=== PATIENT | male | born 1970 | race Caucasian/White ===

== ENCOUNTER → 2023-10-28 09:21 | Outpatient (BNVA) | payer OTHER, SELFPAY | PROVIDERS: PCP Internal Medicine; Visit Provider Physician Assistant Medical | DX: S39.012A Strain of muscle, fascia and tendon of lower back, initial encounter (principal); X50.3XXA Overexertion from repetitive movements, initial encounter | CPT/HCPCS: 99202 ==

== ENCOUNTER → 2023-10-30 11:02 | Outpatient (BNVA) | payer OTHER, SELFPAY | PROVIDERS: PCP Internal Medicine; Visit Provider Physician Assistant | DX: S39.012A Strain of muscle, fascia and tendon of lower back, initial encounter (principal); X50.3XXA Overexertion from repetitive movements, initial encounter | CPT/HCPCS: 99213 ==

== ENCOUNTER → 2023-11-06 14:39 | Outpatient (BNVA) | payer OTHER, SELFPAY | PROVIDERS: PCP Internal Medicine; Visit Provider Physician Assistant | DX: S39.012A Strain of muscle, fascia and tendon of lower back, initial encounter (principal); X50.3XXA Overexertion from repetitive movements, initial encounter | CPT/HCPCS: 99214 ==

== ENCOUNTER → 2023-11-20 15:00 | Outpatient (BNVA) | payer OTHER, SELFPAY | PROVIDERS: PCP Internal Medicine; Visit Provider Physician Assistant | DX: S39.012A Strain of muscle, fascia and tendon of lower back, initial encounter (principal); X50.3XXA Overexertion from repetitive movements, initial encounter | CPT/HCPCS: 99213 ==

== ENCOUNTER → 2023-12-02 16:16 | Outpatient (BNVA) | payer OTHER, SELFPAY | PROVIDERS: PCP Internal Medicine; Visit Provider Physician Assistant | DX: S39.012D Strain of muscle, fascia and tendon of lower back, subsequent encounter (principal) | CPT/HCPCS: 99213 ==

== ENCOUNTER 2023-12-09 13:00 | Outpatient (RCR) | payer OTHER, BC, SELFPAY ==
--- NOTE | 2023-11-16 12:29 | MHC.PT.EP ---
[facility] [place] Office [place] Office [place] Office [address] Bing Eric [address] [phone] F: [phone] F: [phone] F: [phone] F: [phone] Physical Therapy Plan of Care Date of Evaluation: 11/16/23 Date of Surgery: Diagnosis: LUMBAR STRAIN Assessment: 53 YO MALE REF TO PT WITH H/O INJURING HIS RT LB AT WORK ON 10/26/23. 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 OBJECTIVELY, THE Pt HAS DECR HIP FLEXIB, LIMITED TRUNK ROM, (+) SOFT TISSUE IRRIT Rt THORACOLUMB PS MM, AND LIMITED TOLERANCE TO PROLONGED STANDING/ WALKING/ DONNING Rt LE PANT LEG. HE DENIES RADICULAR SXS OR BOWEL/BLADDER SIGNS/SXS. HE WOULD BENEFIT FROM PT TO ADDRESS THE ABOVE, ESPEC PAIN/ SELF-SX MGMT TECHN IN ORDER FOR HIM TO REACH HIS ULTIMATE GOAL OF RTW REG DUTY. Frequency and Duration: The patient will be seen 2 x WK x 4 WKS Short Term Goals: *Pt DEMON APPROP BODY MECH W SIMUL TASKS *DECR Rt LBP TO 2-3/10 AT MAX *INITIATE HEP *IMPROVE LUMBOPELVIC STABILITY Usp Goals: *Pt INDEP W PROGRESSIVE HEP AND SELF-SX MGMT TECHN *WFL HIP AND TRUNK AROM/ FLEXIB *Pt RTW REG DUTY/ REG ADLs / FITNESS WALKING , EVIDENT W IMPROVED OSWESTRY SCORE (AT EVAL 13/50 ) Treatment Plan: Modalities to reduce pain, spasms and effusion. Manual therapy to restore motion and function. Therapeutic exercise to improve strength and flexibility. Neuromuscular re-education for posture and balance. Therapeutic activities to return to functional activities of daily living. Electronically signed by: LATESHA SULTANA,PT Please sign and return to therapist. Thank you for your referral.
--- NOTE | 2023-12-09 14:04 | MHC.PT.DC ---
[facility] [place] Office [place] Office [place] Office [address] Bing Eric [address] [phone] F: [phone] F: [phone] F: [phone] F: [phone] Physical Therapy Discharge Report Diagnosis: LUMBAR STRAIN Date of Surgery: Date of Evaluation: 11/16/23 Date of Discharge: 12/09/23 Treatments to Date: 7 Cancellations to Date: 0 No Shows to Date: 0 Discharge Status: Achieved Goals Improved Function Independent with HEP Discharge Summary: DANA HAS PROGRESSED NICELY IN PT- HE HAS MET HIS PT GOALS AND IS RTW REG DUTY. HE DEMON APPROP, SAFE BODY MECH W WORK SIMUL TASKS AND HE NOTED HE IS MORE AWARE OF HIS POSITIONING AT WORK. HE HAS A COMPREHENSIVE HEP AND WE DISCUSSED IMPORTANCE OF CONT W HIP STRETCHES FOR OPTIMAL BENEFIT. HE DENIED ANY LBP TODAY, NOTES HE ONLY HAS MILD LB SORENESS W PROLONGED STANDING. DANA'S OSWESTRY SCORE WAS 0/50 TODAY AT D/C. Electronically signed by: LATESHA SULTANA,PT Please sign and return to therapist. Thank you for your referral.
== END 2023-12-09 14:18 | disposition home or self-care (01) ==
LOC: HO.PT 13:00
PROVIDERS: PCP Internal Medicine; Visit Provider Physician Assistant Medical
DX: S39.012D Strain of muscle, fascia and tendon of lower back, subsequent encounter (principal)
CPT/HCPCS: 97110; 97140; 97161; 97164; 97530